=== PATIENT | female | born 1970 | race Caucasian/White ===

== ENCOUNTER 2019-09-29 01:34 | Emergency (ER) | payer SELFPAY ==
[~2019-09-29] VITALS: Ht 167.6 cm; Wt 65.0 kg
[2019-09-29] MEDS ORDERED: ACETAMINOPHEN 325MG TABLET PO ONE (02:00)
[2019-09-29 06:41] VITALS: BP 112/66
== END 2019-09-29 09:28 | disposition left against medical advice (07) ==
LOC: ER 02:03
DX: M79.671 Pain in right foot (principal); L84 Corns and callosities; F15.10 Other stimulant abuse, uncomplicated
CPT/HCPCS: 99283